=== PATIENT | male | born 1965 | race African-American/Black ===

== ENCOUNTER 2023-07-25 17:22 | Emergency (ER) | payer BC, OTHER ==
[~2023-07-25 17:22] MED LIST: AMIODARONE 50 MG/ML 3 ML VIAL IV ONE; CALCIUM CHLORIDE 100 MG/ML 10 ML SYRINGE ONE; DEXTROSE 5% IN WATER 50 ML BAG ONE; DEXTROSE 50% SYRINGE 50 ML IVP ONE; EPINEPHrine 10 ML SYRINGE (0.1 MG/ML) ONE; LIDOCAINE 2% SYG (PF) 100 MG/5 ML ONE; METOPROLOL TARTRATE 5 MG/5 ML VIAL IVP ONE; SODIUM BICARB 8.4% 50 ML SYR (1 MEQ/ML) ONE
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
== END 2023-07-25 22:09 | disposition expired ==
LOC: EC 17:22
DX: I46.9 Cardiac arrest, cause unspecified (principal); I49.01 Ventricular fibrillation; V89.2XXA Person injured in unspecified motor-vehicle accident, traffic, initial encounter; Y92.410 Unspecified street and highway as the place of occurrence of the external cause
CPT/HCPCS: 99291 ×2; 32551 ×2; 36430; 92950; 86900; 86901; 86850; 86920; C1729; G0390; P9016; J0282; J2001; J0171